=== PATIENT | male | born 1955 | race Caucasian/White ===

== ENCOUNTER 2016-12-26 08:14 | Inpatient (IN) | payer BC, OTHER ==
[~2016-12-26] VITALS: Ht 170.2 cm; Wt 70.8 kg
--- NOTE | ~2016-12-26 | O ---
[facility] [place] [address] OPERATIVE REPORT Name: JAMMIE SANCHEZ Room #: 310-P [facility] IN M.R.#: [id number] Admission: 12/26/16 Attend Phys: Raffi Glez DO Discharge: 12/27/16 Date of : 59 Report #: [id number] THIS REPORT FOR: //name// CC: Ludin Glez DATE OF SERVICE: 12/26/2016 PREOPERATIVE DIAGNOSIS: Acute appendicitis. POSTOPERATIVE DIAGNOSES: 1. Acute nonsuppurative appendicitis. 2. Incarcerated incisional ventral hernia. PROCEDURES PERFORMED: 1. Laparoscopic appendectomy. 2. Laparoscopic primary suture repair of an incarcerated incisional ventral hernia. SURGEON: Silvestre Javier M.D. FERN PICKER: HUBER Cabral. ANESTHESIA: General endotracheal anesthesia. ESTIMATED BLOOD LOSS: Minimal (less than 5 mL). COMPLICATIONS: None appreciated. SPECIMENS: Appendix to pathology. INDICATIONS: The patient is a 61-year-old male with a history of hepatitis C as well as a prior laparoscopic cholecystectomy who presented with an approximate 24-hour history of right lower quadrant abdominal pain with workup consistent with acute appendicitis without perforation. As such, indication was for laparoscopic appendectomy today and intraoperative findings of an incarcerated incisional ventral hernia were found that required primary suture repair above and beyond just performing the simple appendectomy and through separate incision site. DESCRIPTION OF PROCEDURE: After explaining the risks, benefits and alternatives of the procedure with the patient in detail in the preoperative holding area and obtaining written consent, the patient was brought to the operating room and placed supine on the operating room table. After conducting a thorough timeout procedure verifying correct patient and procedure, the patient was given general endotracheal anesthesia. Once adequate anesthesia [address] [address] OPERATIVE REPORT Name: JAMMIE SANCHEZ Room #: 310-P [facility] IN M.R.#: [id number] Admission: 12/26/16 Attend Phys: Raffi Glez DO Discharge: 12/27/16 Date of : 59 Report #: [id number] was obtained, his SCDs were hooked up to pneumatic compression device and he was already on an inpatient regimen of IV antibiotic therapy, which is all in line with the SCIP protocol. The patient's abdomen was now prepped and draped in the standard surgical sterile fashion. 5 mL of 0.5% Marcaine with epinephrine were used to anesthetize the skin in the infraumbilical location at his prior incision site. #15 bladed scalpel was used to create a 1-cm transverse skin incision at this location. A 12-mm Visiport was placed over 0 degree 5-mm laparoscope and was introduced through this incision site. Once intraabdominal placement was verified visually, the obturator for the trocar and laparoscope were both removed and the abdomen was insufflated to 15 mmHg using carbon dioxide gas. The laparoscope was changed to a 5-mm 30-degree laparoscope, which was reintroduced through this trocar. The entire abdomen was evaluated to ensure no injury upon entry. The patient was now placed in Trendelenburg position. I proceeded to place two 5 mm working trocars. One was placed in the suprapubic location and second was placed in the left lower quadrant. Both additional trocars were placed under direct vision after anesthetizing the skin at each location with 5 mL of 0.5% Marcaine with epinephrine and I had created small skin nicks using #15 bladed scalpel. The patient was now placed with the right side slightly elevated and I proceeded to easily identify a thick inflamed hyperinjected appendix that had no evidence of perforation. The appendix was elevated and a window was made in the mesoappendix near its base using [place] dissector. The laparoscope was then removed, changed it to left lower quadrant trocar and I proceeded to use the [place] 45-mm stapler with a blue load passing it through the infraumbilical trocar and ensuring that one blade of the stapler was passed through the window in the mesoappendix. The stapler was then seated at the base of the appendix right at the level of the cecum where it was healthy, it was clamped and fired completely transecting the appendix. The Harmonic scalpel was now used to transect the mesoappendix for complete hemostasis, freeing the entire specimen. The EndoCatch bag was then placed in the infraumbilical trocar and the specimen was placed within it under direct vision. The pursestring suture was drawn and specimen was removed from the abdomen under direct vision. Evaluation of the umbilical location at this juncture showed an incarcerated band of omentum contained within an incisional hernia located approximately 2-3 cm cephalad to my infraumbilical fascial incision. A laparoscopic grasper was used to reduce this incarcerated omentum, leaving approximately 0.5 x 0.5 cm incisional hernia defect that would require suture repair. Through a separate stab incision slightly superior to the umbilicus, the Rober-Melina suture passer device was utilized with an [address] a cnizws-si-avcbu fascial suture around the hernia defect and this was tied down under direct vision completely repairing the defect. I did then utilized an additional 0 PDS suture placing a dqyfwe-aj-jabdu suture around the infraumbilical fascial incision. However, this was not tied down, but was tagged with a hemostat and the trocars were placed under direct vision. Laparoscope was placed back in the infraumbilical trocar and the staple line was evaluated. We had relatively good hemostasis with no obvious bleeding on the staple line. The staple line appeared to be [facility] [address] [place] [address] OPERATIVE REPORT Name: LAURAJAMMIE Room #: 310-P [facility] IN M.R.#: [id number] Admission: 12/26/16 Attend Phys: Raffi Glez DO Discharge: 12/27/16 Date of : 59 Report #: [id number] seated nicely at the base of the healthy appendix at the level of the cecum. Due to the patient's hepatitis C and likely issues with clotting, I did elect to spray Leonel overlying the right lower quadrant and the staple line for assistance with long-term hemostasis. I then proceeded to place the laparoscope back in the left lower quadrant trocar and I removed the infraumbilical trocar and tied down that 0 PDS suture after reducing the insufflation pressure to 8 mmHg under direct vision to ensure I did not catch a loop of bowel or omentum in my suture repair. The abdomen was now fully desufflated. All ports removed under direct vision. A 4-0 Monocryl was used in a standard subcuticular fashion for all skin incisions and Dermabond glue was applied to all skin wounds. At the end of the procedure, all instrument, needle and sponge counts were correct. The patient tolerated the procedure without incident, was awakened in the operating room, transitioned to the recovery room in stable condition with no apparent complications. <ELECTRONICALLY SIGNED> By: Silvsetre Javier MD, FACS 12/29/16 0748 [id number] Silvestre Javier MD, FACS /nt
--- NOTE | ~2016-12-26 | HC ---
[facility] [place] [address] CONSULTATION Name: JAMMIE SANCHEZ Room #: 310-P [facility] IN M.R.#: [id number] Admission: 12/26/16 Attend Phys: Raffi Glez DO Discharge: 12/27/16 Date of : 59 Report #: [id number] THIS REPORT FOR: //name// CC: Ludin Glez DATE OF SERVICE: 12/26/2016 REFERRING PROVIDER: Raffi Glez DO REASON FOR CONSULTATION: Abdominal pain. HISTORY OF PRESENT ILLNESS: The patient is a 61-year-old male with a history of hepatitis C and hypothyroidism, who presented with a 24-hour history of periumbilical to right lower quadrant abdominal pain. The patient was evaluated in the Emergency Room with laboratories and a CT scan of the abdomen and pelvis. The patient's labs showed a leukocytosis with a white blood cell count of 14.[address] scan showed acute appendicitis without evidence of periappendiceal abscess. As such, the patient has been admitted. I have been asked to evaluate from a surgical standpoint. PAST MEDICAL HISTORY: Hepatitis C and hypothyroidism. PAST SURGICAL HISTORY: Prior laparoscopic cholecystectomy. HOME MEDICATIONS: Flomax, Synthroid, and Ambien. ALLERGIES: CODEINE, which causes a rash. FAMILY HISTORY: Reviewed and noncontributory. SOCIAL HISTORY: The patient smokes half a pack of cigarettes daily and has done so for many years. He drinks alcohol socially and denies illicit drug use. REVIEW OF SYSTEMS: GENERAL: The patient denies nocturnal fevers or chills. HEENT: No change in vision, change in hearing. NECK: No swelling or difficulty swallowing. HEART: No chest pain or palpitations. LUNGS: No cough or shortness of breath. ABDOMEN: Abdominal pain with nausea. GENITOURINARY: No dysuria or hematuria. ENDOCRINE: No polyuria, polydipsia. HEMATOLOGIC: No history of bleeding or easy bruising. EXTREMITIES: No history weakness or limited range of motion. NEUROLOGIC: No history of syncope or near syncopal episodes. [facility] [address] [place] [address] CONSULTATION Name: JAMMIE SANCHEZ LESA Room #: 310-P [facility] IN M.R.#: [id number] Admission: 12/26/16 Attend Phys: Raffi Glez DO Discharge: 12/27/16 Date of : 59 Report #: [id number] SKIN AND INTEGUMENT: No history of abnormal lesions or moles. PSYCHIATRIC: No history of anxiety or depression. PHYSICAL EXAMINATION: VITAL SIGNS: Temperature 97.7, pulse 97, respirations 18, blood pressure 133/81. He stands 5 feet 7 inches tall and weighs 156 pounds. GENERAL: Alert and oriented, in no acute distress. HEENT: Normocephalic, atraumatic. Pupils equal, round, reactive to light. NECK: Supple, without lymphadenopathy. Trachea midline. HEART: Regular rate and rhythm. LUNGS: Clear to auscultation bilaterally. ABDOMEN: Soft, nondistended. He is tender to palpation in the right lower quadrant with mild guarding, but no rebound. GENITOURINARY: Normal external male genitalia. EXTREMITIES: No clubbing, cyanosis or edema. NEUROLOGIC: Cranial nerves 2-12 are grossly intact. PSYCHIATRIC: Normal mood and affect. SKIN AND INTEGUMENT: No abnormal lesions or moles. LABORATORY AND X-RAY DATA: CBC shows white blood cell count of 14.8 thousand, hemoglobin 15.1, platelets 271,000. He has a left shift as well of 87% neutrophils. The patient's creatinine is 1.00, albumin 4.0. LFTs are normal. CT scan of the abdomen and pelvis as per HPI shows a dilated fluid filled appendix with mild periappendiceal stranding concerning for acute appendicitis. No other abnormal findings within the abdomen. ASSESSMENT AND PLAN: A 61-year-old male with hepatitis C and hypothyroidism who presents with an acute appendicitis. The patient has been admitted. I will keep him n.p.o. with IV fluid rehydration. He will continue IV antibiotics in the form of Zosyn and we will proceed to the operating room for a laparoscopic appendectomy at the first available opportunity. Risks, benefits and alternatives of that procedure have been discussed with the patient in detail and he agrees to proceed as outlined. I sincerely appreciate this consult. I will follow closely and leave any further recommendations in the patient's chart as appropriate. <ELECTRONICALLY SIGNED> By: Silvestre Javier MD, FACS 12/29/16 0748 [id number] [id number] Silvestre Javier MD, FACS /nt
--- NOTE | ~2016-12-26 | S ---
[facility] [place] [address] SURGICAL PATH RPT PROCEDURE Name: JIMY SANCHEZ Room #: 310-P [facility] IN M.R.#: [id number] Admission: 12/26/16 Date of : 59 Discharge: 12/27/16 Report #: [id number] Path Case #: [id number] PATHOLOGY REPORT COLLECTION DATE: 12/26/2016 RECEIVED DATE: 12/26/2016 SUBMITTING PHYS: Dr. Silvestre Javier OTHER PHYS: Dr. Raffi Santos SPECIMEN(S) RECEIVED: A.Appendix * * * * * * * * * * * * FINAL DIAGNOSIS: Appendix, appendectomy: - Marked acute appendicitis, along with marked serositis. PATHOLOGIST: Radhika Galarza M.D. REPORT ELECTRONICALLY SIGNED BY: Radhika Galarza M.D. DATE/TIME: 12/28/2016 16:38 * * * * * * * * * * * * GROSS PATHOLOGY: Received in formalin labeled "Jimy Sanchez, appendix," is an appendix measuring 5.7 cm in length and up to 1.2 cm in diameter with a moderate amount of attached mesoappendix. The serosal surface is dusky pink-corcoran in appearance with moderate vasculature. Sectioning reveals a patent to dilated lumen filled with fecal material. Special Needs [employer] sections are submitted in cassette A1. (CAA; 12/27/2016) CLINICAL HISTORY: Acute appendicitis, incisional hernia INITIAL CPT CODE(S): A; 21191 Professional services performed by [facility] at [facility] [address], [place] [address] Technical services performed by [facility] at [address] [place] [id number]. [facility] [address] [place] [address] SURGICAL PATH RPT PROCEDURE Name: JIMY SANCHEZ Room #: 310-P [facility] IN M.R.#: [id number] Admission: 12/26/16 Date of : 59 Discharge: 12/27/16 Report #: [id number] Path Case #: [id number] [address] PHONE: [phone] DIRECTOR: Pedro Pablo Martinez M.D. * * * END OF REPORT * * *
[2016-12-26 08:14] VITALS: BP 123/74
[~2016-12-26 08:14] MED LIST: ASPIRIN EC325 M1 PO; BACTRIM DS TAB1 EACH PO; CIPROFLOXACIN500 M1 PO; IBUPROFEN 800800 MG PO; IBUPROFEN200 M2 PO; LEVOTHROID150 MC1 PO; LEXAPRO 10 MG T10 M1 PO; OXYBUTYNIN 5 MG5 M1 PO; SENNA S TABLET1 EACH PO; SYNTHROID150 MCG PO; TAMSULOSIN HCL0.4 M1 PO; ULTRAM 50MG TAB50 MG PO; ZOLPIDEM TARTRATE PO
[2016-12-26 09:05] LABS: HEMATOCRIT 43.9 % (42.0-52.0); HEMOGLOBIN 15.1 gm/dL (14.0-18.0); MCHC 34.5 g/dL (28.0-37.0); MCV 92.6 fL (80.0-100.0); PLATELET COUNT 271 thou/uL (150-400); RBC 4.74 mil/uL (4.50-6.00); RDW 13.5 % (10.5-14.5); WBC 14.8 thou/uL (4.0-11.0)
[2016-12-26 09:07] LABS: MANUAL DIFF YES
[2016-12-26 09:09] LABS: CALCIUM 9.3 mg/dL (8.5-10.1); POTASSIUM 3.5 mmol/L (3.5-5.1)
[2016-12-26 09:14] LABS: DIRECT BILIRUBIN 0.2 mg/dL (<0.1-0.3); TOTAL PROTEIN 7.3 g/dL (6.4-8.2)
[2016-12-26 10:18] LABS: ABSOLUTE NEUTROPHILS 12.9 thou/uL (1.4-8.2); TOTAL CELL COUNT 100
[2016-12-26 10:19] LABS: ANISOCYTOSIS SLIGHT
[2016-12-26 11:04] VITALS: BP 131/79
[2016-12-26 11:40] VITALS: BP 133/81
[2016-12-26 12:30] VITALS: BP 120/84
[2016-12-26 16:05] VITALS: BP 122/81
[2016-12-26 20:00] VITALS: BP 126/77
[2016-12-27] VITALS: BP 118/76
[2016-12-27 04:20] VITALS: BP 121/72
[2016-12-27 05:10] LABS: ABSOLUTE NEUTROPHILS 6.2 thou/uL (1.4-8.2); BASOPHILS 0.5 % (0.0-2.0); EOSINOPHILS 1.2 % (0.0-3.0); LYMPHOCYTES 16.7 % (24.0-44.0); MCH 32.8 pg (26.0-34.0); MCHC 35.1 g/dL (28.0-37.0); MCV 93.6 fL (80.0-100.0); MONOCYTES 8.9 % (1.0-8.0); PLATELET COUNT 207 thou/uL (150-400); POLYS 72.7 % (36.0-66.0); RBC 3.95 mil/uL (4.50-6.00); RDW 13.8 % (10.5-14.5); WBC 8.5 thou/uL (4.0-11.0)
[2016-12-27 05:25] LABS: POTASSIUM 3.7 mmol/L (3.5-5.1)
[2016-12-27 05:45] LABS: MANUAL DIFF NO
[2016-12-27 08:04] VITALS: BP 114/79
[2016-12-27] MEDS ORDERED: AUGMENTIN 875875 MG PO (09:18)
[2016-12-27 10:33] VITALS: BP 114/79
[2016-12-27] MEDS ORDERED: PERCOCET PO (10:36)
[2016-12-27] MEDS ORDERED: TRAMADOL 50 MG50 MG PO (10:36)
== END 2016-12-27 12:42 | disposition home or self-care (01) | DRG 343 ==
LOC: ER 08:14 → 3N 10:31 → EROBS 10:31 → 3N 11:15
PROVIDERS: Emergency Medicine; Surgery
PROC: 0DTJ4ZZ Resection of Appendix, Percutaneous Endoscopic Approach (ICD-10-PCS; principal; 2016-12-26)
PROC: 0WQF4ZZ Repair Abdominal Wall, Percutaneous Endoscopic Approach (ICD-10-PCS; principal; 2016-12-26)
DX: K35.80 Unspecified acute appendicitis (principal); B19.20 Unspecified viral hepatitis C without hepatic coma; N40.0 Benign prostatic hyperplasia without lower urinary tract symptoms; K43.2 Incisional hernia without obstruction or gangrene; E03.9 Hypothyroidism, unspecified; F17.210 Nicotine dependence, cigarettes, uncomplicated; Z90.49 Acquired absence of other specified parts of digestive tract; Z88.6 Allergy status to analgesic agent; Z79.899 Other long term (current) drug therapy
CPT/HCPCS: 10094; 50010; 50101; 50249; 50411; 50555; 50558; 50739; 50740; 50900; 50962; 51489; 51975; 52265; 52287; 53307; 54022; 54118; 56525; 56526; 62110; 62900; 70005